=== PATIENT | female | born 1965 | race Caucasian/White ===

== ENCOUNTER 2016-08-06 09:19 | Emergency (ER) | payer BC, OTHER ==
[2016-08-06 09:23] VITALS: PULSE 86; TEMP 97.7
--- NOTE | 2016-08-06 09:33 | CPEKG ---
Heart Rate: 78 RR Interval: 769 P-R Interval: 156 QRSD Interval: 98 QT Interval: 380 QTC Interval: 433 P [place]: 79 QRS [place]: 87 T Wave [place]: 34 EKG Severity - NORMAL ECG - EKG Impression: SINUS RHYTHM Electronically Signed By: Abebe Bailey 06-Aug-2016 15:18:59
--- NOTE | 2016-08-06 09:54 | EDPHY ---
H & P Stated Complaint: cp/dx angina at [facility] Time Seen by Provider: 08/06/16 09:54 - Personal History LMP (Females 10-55): IUD In Place Current Tetanus/Diphtheria Vaccine: Unsure - Medical/Surgical History Hx Asthma: No Hx Chronic Respiratory Disease: No Hx Diabetes: No Hx Cardiac Disease: Yes Hx Renal Disease: No Hx Cirrhosis: No Hx Alcoholism: No Hx HIV/AIDS: No Hx Splenectomy or Spleen Trauma: No Other PMH: disk surgery back/angina - Social History Smoking Status: Never smoked Constitutional: Initial Vital Signs Temperature (C) 36.5 C 08/06/16 09:20 Heart Rate 86 08/06/16 09:20 Respiratory Rate 17 08/06/16 09:20 Blood Pressure 152/106 H 08/06/16 09:20 O2 Sat (%) 98 08/06/16 09:20 O2 Delivery Mode Room Air O2 (L/minute) 2 Allergies/Adverse Reactions: No Known Allergies Allergy (Verified 08/06/16 09:20) Home Medications: Medication Instructions Recorded Aspirin [Aspirin 81mg (OTC)] 81 mg PO DAILY 10/01/11 Rosuvastatin Calcium [Crestor 10mg 0 mg PO DAILY 10/01/11 (RX)] Nitro-Bid 2% Tube (*) 08/06/16 oxyCODONE IR [Oxycodone Ir (*)] 5 - 10 mg PO Q6 PRN #20 tab 08/06/16 Medical Decision Making ED Course/Re-evaluation: CHIEF COMPLAINT: Posterior chest pain HISTORY OF PRESENT ILLNESS: The patient is a 51 y/o female complaining of gradual onset left lower posterior chest pain onset over the last few days while traveling to [place]. She has a history of angina with significant cardiac work up, but states this is very different from that pain. She describes the pain as feeling "like my ribs are fractured," pleuritic in nature, and severe. Her pain appeared gradually following a flight to [place] and has worsened over this weekend. She denies any obvious trauma or lifting prior to symptom onset. She has not taken anything for the pain. She takes a baby aspirin daily. REVIEW OF SYSTEMS: A 10 point review of systems was performed and is negative with the exception of the elements mentioned in the history of present illness. PHYSICAL EXAM: HR, BP, O2 Sat, RR. Temp noted General Appearance: Alert, well hydrated, appropriate, uncomfortable appearing , unable to lie down due to pain. Head: Atraumatic without scalp tenderness or obvious injury Eyes: Pupils equal, round, reactive to light and accommodation, EOMI, no trauma , no injection. Ears: Clear bilaterally, no perforation, normal landmarks Nose: Atraumatic, no rhinorrhea, clear. Throat: There is no erythema or exudates, no lesions, normal tonsils, mucus membranes moist. Neck: Supple, 2+ carotid upstroke, nontender, no lymphadenopathy. Respiratory: No retractions, no distress, no wheezes, and no accessory muscle use. Lungs are clear to auscultation bilaterally. Cardiovascular: Regular rate and rhythm, no murmurs, rubs, or gallops. Bilateral carotid, radial, dorsalis pedis, and posterior tibial pulses intact. Good capillary refill all extremities. Gastrointestinal: Abdomen is soft, nontender, non-distended, no masses, no rebound, no guarding, no peritoneal signs. Musculoskeletal: Normal active ROM of all extremities, atraumatic. Neurological: Alert, appropriate, and interactive. The patient has normal DTRs and non-focal cranial nerves, motor, sensory, and cerebellar exam. Skin: No rashes, good turgor, no nodules on palpation. Past medical history: valvular heart disease, angina, back pain, pleurisy, high calcium score, hyperlipidemia Past surgical history: Back surgery Family history: Sister with high calcium score and chest pain Social history: Nonsmoker. Very active dancing, hiking, skiing. Reviewed prior medical records including ED visit 10/01/11 for chest pain. DIAGNOSTICS/PROCEDURES/CRITICAL CARE TIME: The 12 lead EKG was interpreted by myself. Sinus rhythm rate 78. See hard copy and/or "tracemaster" electronic copy for interpretation. Study: CTA of the chest Indication: Chest pain Results: CTA scan of the chest was obtained. The results of the study are normal. The study was read by the radiologist, Dr. Ross. I viewed the images myself on the PACS system. DIFFERENTIAL DIAGNOSIS: The differential diagnosis for the patient's chest pain included but was not limited to myocardial ischemia, pulmonary embolus, chest wall pain, pleural inflammation, and pulmonary infectious causes. MEDICAL DECISION MAKING: This is a 51 y/o female, with a history significant for angina and elevated coronary calcium, presenting with gradually worsening posterior left lower back pain that is significantly aggravated by movement and inspiration, but not palpation. Plan for cardiac and PE work up. 50mcg IV Fentanyl and 30mg IV Toradol administered for pain. CTA is normal. Patient will be discharged with pain medication and referral to PCP for follow up. Return precautions given. She agrees with plan. - Data Points Laboratory Results: Laboratory Results 08/06/16 09:54 08/06/16 09:48 08/06/16 08/06/16 08/06/16 10:26 09:54 09:48 WBC 8.73 10^3/uL 10^3/uL (3.80-9.50) RBC 5.07 10^6/uL 10^6/uL (4.18-5.33) Hgb 15.0 g/dL g/dL (12.6-16.3) Hct 45.5 % % (38.0-47.0) MCV 89.7 fL fL (81.5-99.8) MCH 29.6 pg pg (27.9-34.1) MCHC 33.0 g/dL g/dL (32.4-36.7) RDW 13.5 % % (11.5-15.2) Plt Count 234 10^3/uL 10^3/uL (150-400) MPV 10.4 fL fL (8.7-11.7) Neut % (Auto) 72.8 % % (39.3-74.2) Lymph % (Auto) 18.3 % % (15.0-45.0) [place] % (Auto) 7.9 % % (4.5-13.0) Eos % (Auto) 0.3 % L % (0.6-7.6) Baso % (Auto) 0.5 % % (0.3-1.7) Nucleat RBC Rel Count 0.0 % % (0.0-0.2) Absolute Neuts (auto) 6.35 10^3/uL 10^3/uL (1.70-6.50) Absolute Lymphs (auto) 1.60 10^3/uL 10^3/uL (1.00-3.00) Absolute Monos (auto) 0.69 10^3/uL 10^3/uL (0.30-0.80) Absolute Eos (auto) 0.03 10^3/uL 10^3/uL (0.03-0.40) Absolute Basos (auto) 0.04 10^3/uL 10^3/uL (0.02-0.10) Absolute Nucleated RBC 0.00 10^3/uL 10^3/uL (0-0.01) Immature Gran % 0.2 % % (0.0-1.1) Immature Gran # 0.02 10^3/uL 10^3/uL (0.00-0.10) Sodium 140 mEq/L mEq/L (134-144) Potassium 3.8 mEq/L mEq/L (3.5-5.2) Chloride 103 mEq/L mEq/L (97-110) Carbon Dioxide 25 mEq/l mEq/l (22-31) Anion Gap 12 mEq/L mEq/L (8-16) BUN 8 mg/dL mg/dL (7-23) Creatinine 0.6 mg/dL mg/dL (0.6-1.0) Estimated GFR > 60 Glucose 95 mg/dL mg/dL (70-100) Calcium 9.7 mg/dL mg/dL (8.5-10.4) Troponin I < 0.012 ng/mL ng/mL (0-0.034) NT-Pro-B Natriuret Pep 168 pg/mL H pg/mL (0-125) Beta HCG, Qual NEGATIVE Medications Given: Discontinued Medications Fentanyl (Sublimaze) 50 mcg IVP EDNOW ONE Stop: 08/06/16 10:07 Last Admin: 08/06/16 10:25 Dose: 50 mcg Ketorolac Tromethamine (Toradol) 30 mg IVP EDNOW ONE Stop: 08/06/16 10:07 Last Admin: 08/06/16 10:25 Dose: 30 mg Departure - Departure Disposition: Home, Routine, Self-Care Clinical Impression: Pleuritic chest pain Condition: Good Instructions: Chest Pain (ED), Pleurisy (ED) Additional Instructions: 1. Take OxyIR as prescribed when needed for pain. 2. Follow up with your primary care provider for symptoms not improved over the next 2-3 days. 3. Return to the ED for worsening of condition. Referrals: Patient,NotPresent [Unknown] - As per Instructions [facility] ,. [Edm Groups for Call Sched] - As per Instructions Prescriptions: oxyCODONE IR [Oxycodone Ir (*)] 5 - 10 mg PO Q6 PRN #20 tab PRN Reason: Pain, Severe Report Scribed for: Abebe Bailey Report Scribed by: Myah Dubois Date of Report: 08/06/16 Time of Report: 09:57
[2016-08-06] MEDS ORDERED: fentaNYL 100 MCG/2 ML INJ IVP ONE (10:06)
[2016-08-06] MEDS ORDERED: KETOROLAC 30 MG/1 ML SDV IVP ONE (10:06)
[2016-08-06 10:16] LABS: % IMMATURE GRANULYOCYTES 0.2 % (0.0-1.1); ABSOLUTE IMMATURE GRANULOCYTES 0.02 10^3/uL (0.00-0.10); ADD DIFF? NO; ADD MORPH? NO; ADD SCAN? NO; ATYPICAL LYMPHOCYTE FLAG 0 (0-99); FRAGMENT RBC FLAG 0 (0-99); HEMATOCRIT 45.5 % (38.0-47.0); LEFT SHIFT FLG 0 (0-99); LIPEMIA HEMOLYSIS FLAG 80 (0-99); MEAN CELL HEMOGLOBIN 29.6 pg (27.9-34.1); MEAN CELL VOLUME 89.7 fL (81.5-99.8); MEAN PLATELET VOLUME 10.4 fL (8.7-11.7); PLATELET CLUMPS FLAG 0 (0-99); PLATELET COUNT 234 10^3/uL (150-400); RED BLOOD CELL COUNT 5.07 10^6/uL (4.18-5.33); RED CELL DISTRIBUTION WIDTH 13.5 % (11.5-15.2)
[2016-08-06 10:25] LABS: ANION GAP 12 mEq/L (8-16); CALCIUM 9.7 mg/dL (8.5-10.4); CARBON DIOXIDE 25 mEq/l (22-31); CHLORIDE 103 mEq/L (97-110); CREATININE 0.6 mg/dL (0.6-1.0); GLOMERULAR FILTRATION RATE > 60; GLUCOSE 95 mg/dL (70-100); POTASSIUM 3.8 mEq/L (3.5-5.2); SODIUM 140 mEq/L (134-144)
[2016-08-06 10:36] LABS: TROPONIN I < 0.012 ng/mL (0-0.034)
[2016-08-06] MEDS ORDERED: IOPAMIDOL (ISOVUE-370) 150 ML BTL IV ONE (11:00)
[2016-08-06 12:23] VITALS: BP 158/87; RESP 16; O2SAT 97
== END 2016-08-06 12:23 | disposition home or self-care (01) ==
DX: R07.89 Other chest pain (principal); Z79.82 Long term (current) use of aspirin
CPT/HCPCS: 96374; J1885; J3010; Q9967